=== PATIENT | female | born 2000 | race Caucasian/White ===

== ENCOUNTER 2022-07-27 20:13 | Emergency (ER) | payer SELFPAY ==
[~2022-07-27] VITALS: Ht 160 cm; Wt 47.6 kg
--- NOTE | 2022-07-27 20:30 | NUR ---
After being triaged, patient was placed back in the waiting room due to no beds available in the ER.
--- NOTE | 2022-07-27 23:00 | NUR ---
Patient was called to have vital re eval, but patient was not present in the waiting room.
--- NOTE | 2022-07-27 23:45 | NUR ---
Patient waqs called to be placed in room but was not present in the waiting room or outside of ER. PATIENT WAS TRIAGED BUT NOT SEEN BY ERMD.
== END 2022-07-27 23:50 | disposition left against medical advice (07) ==
LOC: ER 20:21
DX: Z53.21 Procedure and treatment not carried out due to patient leaving prior to being seen by health care provider (principal)